=== PATIENT | female | born 2005 | race Caucasian/White ===

== ENCOUNTER 2025-06-27 01:31 | Emergency (ER) | payer OTHER ==
[2025-06-27] MEDS ORDERED: Lidocaine 1% w/Epinephrine 1:100K 20 ML VIAL ONE (01:55)
[2025-06-27] MEDS ORDERED: HYDROcodone/Acetaminophen 10/325 mg Tablet ONE (02:31)
== END 2025-06-27 03:43 | disposition home or self-care (01) ==
LOC: ERS 01:31
DX: S81.812A Laceration without foreign body, left lower leg, initial encounter (principal); W01.198A Fall on same level from slipping, tripping and stumbling with subsequent striking against other object, initial encounter; Y93.41 Activity, dancing; Z23 Encounter for immunization
CPT/HCPCS: 12034; 90471; 90715